=== PATIENT | male | born 2000 | race African-American/Black ===

== ENCOUNTER 2023-01-29 20:24 | Emergency (ER) | payer BC, SELFPAY ==
--- NOTE | ~2023-01-29 | XR_ITS ---
EXAMINATION: XR chest 2V Exam Date/Time: 01/29/2023 21:00 CDT HISTORY: hx pneumo 2.5 weeks ago, chest tightness and pain Comparison: None available. RESULT: Lines, tubes, and devices: None. Lungs and pleura: Clear. Cardiomediastinal silhouette: Normal. Other: No acute osseous or upper abdominal finding. IMPRESSION: No acute cardiopulmonary process. Reviewed, dictated and finalized at location K.
[2023-01-29 20:40] VITALS: BP 148/90; PULSE 92; RESP 18; TEMP 36.7; O2SAT 100
--- NOTE | 2023-01-29 20:45 | ECG_ITS ---
Measurements Intervals [place] Rate: 81 P: 72 CO: 169 QRS: 26 QRSD: 113 T: 77 QT: 367 QTc: 428 Interpretive Statements SINUS RHYTHM INCOMPLETE RIGHT BUNDLE BRANCH BLOCK ST ELEVATION IN ANTEROLAT/INF LEADS, PROBABLY EARLY REPOLARIZATION BASELINE ARTIFACT- I, II, AVR, AVL BORDERLINE ECG NO PREVIOUS ECG AVAILABLE FOR COMPARISON Electronically Signed On 01-29-2023 21:11:02 CDT by Severino Weems D.O.
[2023-01-30] VITALS (22 sets, daily range): BP systolic 115–152; BP diastolic 76–98; PULSE 74–93; RESP 10–30
[2023-01-30] MEDS: LORazepam INJ (*CRX) 2 MG/ML VIAL 0.5 MG IM (01:47)
[2023-01-30] MEDS: ALBUTEROL SULFATE NEB 2.5 MG/3 ML INH 5 MG INHALATION (02:09)
[2023-01-30] MEDS: IPRATROPIUM BR 0.02% INH SOLN 0.5 MG/2.5 ML VIAL INHALATION (02:10)
--- NOTE | 2023-01-30 02:49 | ED.GENADULT ---
HPI - General Adult General Chief complaint: Chest Pain Stated complaint: hx of pneumo 2.5wks ago, chest tightness/pain Time Seen by Provider: 01/30/23 01:03 History of Present Illness HPI narrative: This is a 22-year-old male presenting ED with chief complaint of chest Tightness. Patient has spontaneous pneumothorax about 2 weeks ago which was treated at [facility] with a chest tube. Since then he has been doing well but today he had some chest tightness associated with dry cough. He denies fever chills shortness of breath or abdominal pain. Denies recent trauma. He is also concerned that he is developing pneumonia or has dropped his lungs again. Related Data Allergies Allergy/AdvReac Type Severity Reaction Status Date / Time No Known Allergies Allergy Verified 01/29/23 20:25 [facility] Past Medical History Medical History Asthma Pneumothorax Exam Narrative: APPEARANCE: No apparent distress. Head: atraumatic. EYES: EOMI, NOSE: Atraumatic NECK: Trachea midline RESPIRATORY: No increased rate of breathing, clear to auscultation bilaterally CARDIOVASCULAR: RRR, no peripheral edema ABDOMINAL: Non-distended MUSCULOSKELETAl: No obvious deformities NEURO: Alert. Moving 4/4 extremities SKIN:: Warm, dry. Normal color PSYCHIATRIC: Anxious Course Vital Signs Vital signs: Vital Signs Temperature 98.1 F 01/29/23 20:40 Pulse Rate 92 01/29/23 20:40 Respiratory Rate 18 01/29/23 20:40 Blood Pressure 148/90 H 01/29/23 20:40 Pulse Oximetry 100 01/29/23 20:40 Oxygen Delivery Room Air 01/29/23 20:40 Temperature 98.1 F 01/29/23 20:40 Pulse Rate 88 01/30/23 02:20 Respiratory Rate 18 01/30/23 02:20 Blood Pressure 148/90 H 01/29/23 20:40 Pulse Oximetry 100 01/29/23 20:40 Oxygen Delivery Room Air 01/29/23 20:40 Medical Decision Making [facility] Narrative Medical decision making narrative: -Presentation: 22-year-old with recent spontaneous pneumothorax presenting with chest tightness. Lung exam was clear but the mother is requesting a breathing treatment. -DDX includes but is not limited to: Pneumothorax, asthma, anxiety -Co-morbidities complicating care: spontaneous pneumothorax, asthma -Social determinants of health: patient lives with his mom Lynne -External Chart Review: none -Hx from independent Sources: mother@ bedside -Discussion of Management/Consultants: none -Independent interpretation of studies: chest x-ray showed no acute cardiopulmonary process. Independent EKG interpretation: Rhythm [sinus], Rate 81 [place] -[normal], NE -[normal], QRS [narrow], QTC [normal], T waves -[negative for concerning inversions], ST Segments - [Negative for concerning elevations] Final interpretations: Normal Sinus Rhythm with benign early refill Dx tests considered but not ordered: None -Procedures: -Interventions: 0.5 mg Ativan, DuoNeb treatment -Shared decision making / Disposition: upon re-evaluation patient is resting comfortably. His symptoms have resolved. Patient discharged primary care follow-up. -RX Vital Signs Vital Signs: Vital Signs Temperature 98.1 F 01/29/23 20:40 Pulse Rate 92 01/29/23 20:40 Respiratory Rate 18 01/29/23 20:40 Blood Pressure 148/90 H 01/29/23 20:40 Pulse Oximetry 100 01/29/23 20:40 Oxygen Delivery Room Air 01/29/23 20:40 Temperature 98.1 F 01/29/23 20:40 Pulse Rate 88 01/30/23 02:20 Respiratory Rate 18 01/30/23 02:20 Blood Pressure 148/90 H 01/29/23 20:40 Pulse Oximetry 100 01/29/23 20:40 Oxygen Delivery Room Air 01/29/23 20:40 Discharge Plan Discharge Clinical Impression: Atypical chest pain Patient Disposition: Home, Self-Care Condition: Stable Instructions: Antibiotic Form, Chest Pain (ED) Additional Instructions: please follow-up with your primary care physician for further management. Ple
== END 2023-01-30 03:21 | disposition home or self-care (01) ==
PROVIDERS: Emergency Provider Emergency Medicine
DX: R07.89 Other chest pain (principal); J45.909 Unspecified asthma, uncomplicated; I45.10 Unspecified right bundle-branch block; R94.31 Abnormal electrocardiogram [ECG] [EKG]
CPT/HCPCS: 71046; 93005; 94640; 96372; 99283; J2060

== ENCOUNTER 2023-03-09 19:10 | Emergency (ER) | payer BC, SELFPAY ==
--- NOTE | ~2023-03-09 | XR_ITS ---
EXAMINATION: XR chest 1V portable INDICATION: Chest pain, history of pneumothorax TECHNIQUE: Portable AP chest at 2014 hours COMPARISON: 01/29/2023 FINDINGS: The lungs are free of acute opacities. No pleural effusion or pneumothorax. The cardiomedia stinal silhouette is normal. The visualized bones and soft tissues are unremarkable. IMPRESSION: 1. No acute cardiopulmonary abnormality. Reviewed, dictated and finalized at location F.
[2023-03-09 19:38] VITALS: BP 148/85; PULSE 75; RESP 20; TEMP 36.8; O2SAT 100
[2023-03-09 19:55] VITALS: BP 140/98; PULSE 70; RESP 21; O2SAT 100
--- NOTE | 2023-03-09 20:02 | ECG_ITS ---
Measurements Intervals [place] Rate: 72 P: 26 AL: 174 QRS: 50 QRSD: 133 T: 83 QT: 425 QTc: 467 Interpretive Statements SINUS RHYTHM INTRAVENTRICULAR CONDUCTION DELAY [130+ ms QRS DURATION] SLIGHT ST ELEVATION INFERIORLY, SEEN PREVIOUSLY ON 01/29/2023, PROBABLY EARLY REPOLARIZATION RATHER THAN AN IL. COMPARED TO ECG 01/29/2023 20:48:32 NO SIGNIFICANT CHANGE Electronically Signed On 03-10-2023 8:59:45 CDT by Tri Duncan M.D.
[2023-03-09 20:21] LABS: Basophils Absolute Auto 0.1 K/mm3 (0.0-0.1); Basophils Percent Auto 1.1 % (0.2-1.2); Eosinophils Absolute Auto 0.1 K/mm3 (0-0.3); Eosinophils Percent Auto 1.5 % (0-4.4); Hemoglobin 14.4 g/dL (14.0-18.0); Immature Granulocyte Absolute 0.01 K/mm3 (0.00-0.031); Immature Granulocyte Percent A 0.2 % (0-0.5); Lymphocytes Absolute Auto 1.09 K/mm3 (0.9-3.2); Mean Corpuscular HGB Conc 33.5 g/dl (32-36); Mean Corpuscular Hemoglobin 29.8 pg (26-34); Mean Corpuscular Volume 88.8 fl (80-100); Mean Platelet Volume 9.2 fl (7.4-10.4); Monocytes Absolute Auto 0.5 K/mm3 (0.1-0.6); Neutrophils Percent Auto 63.2 % (45.5-73.1); Platelet Count Result 256 k/mm3 (150-375); Red Blood Count 4.84 M/mm3 (4.6-6.20); Red Cell Distribution Width 13.2 % (11.5-14.5); White Blood Count 4.7 K/mm3 (4.5-10.0)
[2023-03-09 20:33] LABS: Alanine Aminotransferase 19 U/L (6-50); Albumin Level 4.7 g/dL (3.5-5.1); Alkaline Phosphatase 65 U/L (38-126); Anion Gap 6 mmol/L (8-16); Aspartate Amino Transferase 24 U/L (17-59); Bilirubin,Total 1.4 mg/dL (0.2-1.3); Blood Urea Nitrogen 12 mg/dL (9-20); Calcium 9.3 mg/dL (8.4-10.2); Carbon Dioxide 29 mmol/L (22-30); Chloride 101 mmol/L (98-107); Estimated CRCL calculation 146 ml/min; Estimated Glomerular Filt Rate > 60; Glucose 89 mg/dL (65-110); Lipase 73 U/L (23-300); Potassium 3.4 mmol/L (3.4-5.0); Sodium 136 mmol/L (137-145)
[2023-03-09 20:34] LABS: Prothrombin Time 13.6 Seconds (11.1-14.7)
[2023-03-09 20:35] LABS: Partial Thromboplastin Time 30.1 SECONDS (22.3-36.8)
[2023-03-09 20:44] LABS: Troponin I < 0.012 ng/mL (0.000-0.034)
--- NOTE | 2023-03-09 20:47 | ED.CHESTPAIN ---
HPI - Chest Pain General Chief Complaint: Chest Pain Stated Complaint: left rib pain Time Seen by Provider: 03/09/23 20:10 Source: patient Mode of arrival: ambulatory Limitations: no limitations History of Present Illness HPI narrative: Patient is a 22 y/o male who presents to the ED with c/o left posterior chest wall pain. Patient reports a history of a spontaneous pneumothorax in December 2022, treated at [facility]. He did require a temporary chest tube. Patient has been doing well since then, but began having pain in his left posterior lateral chest wall 2 to 3 days ago. He states the pain feels similar to what he experienced with the pneumothorax. He states pain is present at rest, but worse worse with movement. He tried taking Tylenol without relief. He is concerned it may have recurred. He denies any shortness of breath, palpitations, anterior chest pain, or pleuritic pain, all of which did occur with the first episode. He denies history of kidney stones, urinary symptoms, nausea, vomiting, abdominal pain, fevers, cough. Related Data Allergies Allergy/AdvReac Type Severity Reaction Status Date / Time No Known Allergies Allergy Verified 03/09/23 19:46 Review of Systems Review of Systems: CONSTITUTIONAL: Denies fever, chills, or sweats. CARDIOVASCULAR: See HPI. RESPIRATORY: See HPI. GASTROINTESTINAL: Denies abdominal pain, nausea, vomiting, or diarrhea. MUSCULOSKELETAL: See HPI. All systems reviewed & are unremarkable except as noted in HPI and below PMFSH Past Medical History Medical History Asthma Pneumothorax Surgical History Surgical History (Updated 03/09/23 @ 21:38 by Joanie Peterson PA-C) History of placement of chest tube Social History Social History (Updated 03/09/23 @ 21:38 by Joanie Peterson PA-C) Smoking status: Former smoker Exam Narrative: GENERAL: Well appearing, thin, non-toxic, in no acute distress. HEAD: Normocephalic, atraumatic. NECK: Supple. No adenopathy, no masses. RESPIRATORY: Airway patent, respirations nonlabored. Clear to auscultation bilaterally, no rales, rhonchi, wheezing. CARDIOVASCULAR: Regular rate and rhythm without murmurs, rubs, or gallops. Radial pulses 2+ and equal bilaterally. ABDOMINAL: Soft, no tenderness throughout abdomen, nondistended, no hepatosplenomegaly. Normoactive BS. MUSCULOSKELETAL: Moves all extremities. Strength/ROM intact without gross deformities. No significant tenderness to palpation along left posterior lateral chest wall. No CVA tenderness to percussion. SKIN: Warm, dry, normal color. No rashes. NEURO: A&O X3. Speech clear. Cranial nerves II-XII grossly intact. Steady gait. No ataxic movements. PSYCHIATRIC: Appropriate mood and affect. Normal interaction. Course Vital Signs Vital signs: Vital Signs Temperature 98.2 F 03/09/23 19:38 Pulse Rate 75 03/09/23 19:38 Respiratory Rate 20 03/09/23 19:38 Blood Pressure 148/85 H 03/09/23 19:38 Pulse Oximetry 100 03/09/23 19:38 Oxygen Delivery Room Air 03/09/23 19:38 Temperature 98.2 F 03/09/23 19:38 Pulse Rate 67 03/09/23 23:13 Respiratory Rate 16 03/09/23 23:13 Blood Pressure 138/98 H 03/09/23 23:13 Pulse Oximetry 98 03/09/23 23:13 Oxygen Delivery Room Air 03/09/23 19:38 MDM - Chest Pain MDM Narrative Medical decision making narrative: Patient presented to ED with posterior chest wall pain, history of pneumothorax 2 months ago which felt similar. Denying any shortness of breath. Vitals stable upon arrival. No tachycardia, tachypnea, hypoxia. Basic blood work obtained and unremarkable. EKG unremarkable, no significant changes from previous. Stable troponin. Chest x-ray obtained and without evidence for PTX or other cardiopulmonary abnormalities. No signs or symptoms of PE/DVT, PERC negative. Patient updated on lab and imaging findings and francisco
[2023-03-09] MEDS: KETOROLAC 30 MG/ML VIAL (*BKC) IV PUSH (22:20)
[2023-03-09 23:13] VITALS: BP 138/98; PULSE 67; RESP 16; O2SAT 98
== END 2023-03-09 23:14 | disposition home or self-care (01) ==
PROVIDERS: Emergency Medicine; Emergency Provider Physician Assistant
DX: M54.9 Dorsalgia, unspecified (principal); J45.909 Unspecified asthma, uncomplicated
CPT/HCPCS: 36415; 71045; 80053; 83690; 84484; 85025; 85610; 85730; 93005; 96374; 99284; J1885